=== PATIENT | female | born 1995 ===

== ENCOUNTER 2023-05-11 19:06 | Outpatient (BNV) | payer OTHER, SELFPAY | END 2023-05-12 10:48 | PROVIDERS: Admitting Provider Psychiatry & Neurology Psychiatry; Visit Provider Internal Medicine Cardiovascular Disease | DX: Z51.81 Encounter for therapeutic drug level monitoring (principal) | CPT/HCPCS: 93010 ==

== ENCOUNTER 2023-05-11 19:06 | Inpatient (IN) | payer OTHER, SELFPAY ==
--- OUTSIDE RECORDS SUMMARY | 2023-05-11 19:10 | XMS_ITS | Continuity of Care Document ---
Author Name [facility] Address [address] [place] [id number] Organization [facility] Address [address] [place] [address] Care Team Providers Care Vocational Psychologist Name Role Phone No, Pcp Primary Care Physician Tin Lopez Physician Allergies, Adverse Reactions, Alerts Allergen Type Severity Reaction Last Updated Verified Status azithromycin Allergy Unknown May 11, 2023 Y Acti ve ibuprofen Allergy Rash May 11, 2023 Y Active Iodinated Contrast Media Allergy Unknown May 11, 2023 Y Active NSAIDS (Non-Steroidal Anti-Inflamma Allergy Unknown May 11, 2023 Y Active Sulfa (Sulfonamide Antibiotics) Allergy Unknown May 11, 2023 Y Active sulfamethoxazole Allergy Facial Swelling May 11, 2023 Y Active trimethoprim Allergy Facial Swelling May 11, 2023 Y Active Medications Active Medications Medication Dose Units Route Sig Start Date Status Melatonin 3 MG Oral Bedtime May 10, 2023 Active Cannabidiol [Epidiolex] 4.7 MG Oral 2 times a day Au 2022 Active Acetaminophen 650 MG Oral as directed May 10, 2023 Active Lamotrigine 200 MG Oral daily May 10, 2023 Activ e Methylphenidate Hcl [Concerta] 36 MG Oral daily May 10, 2023 Active Sirolimus 2 MG Oral daily May 10, 2023 Active Midazolam [Nayzilam] 5 MG Nostril-Both as directed PRN For Seizure Activity May 10, 2023 Active Problem List Active Problems Medical Problem Onset Date Status Paranoia Active Procedures No known history of procedures. Relevant Diagnostic Tests and/or Laboratory Data Laboratory Results Test Date/Time Result Interp. Ref. Range Result Co mment White Blood Count May 10, 2023 7:45pm 6.87 K/uL 3.5-11.0 Red Blood Count May 10, 2023 7:45pm 4.33 M/uL 3.60-4.80 Hemoglobin May 10, 2023 7:45pm 10.2 g/dL Low 12.0-16.0 Hematocrit May 10, 2023 7:45pm 33.2 % Low 36.0-48.0 Mean Corpuscular Volume May 10, 2023 7:45pm 76.7 fL Low 79.0-98.0 Mean Corpuscular Hemoglobin May 10, 2023 7:45pm 23.6 pg Low 25.4-34.6 Mean Corpuscular Hemoglobin Concent May 10, 2023 7:45pm 30.7 g/dL 30.0-36.0 Red Cell Distribution Width May 10, 2023 7:45pm 15.0 % High 11.5-14.5 Platelet Count May 10, 2023 7:45pm 361 K/uL 150-400 Neutrophils (%) (Auto) May 10, 2023 7:45pm 68.3 % High 35.0-66.0 Immature Granulocyte % (Auto) May 10, 2023 7:45pm 0.1 % 0.0-0.6 Lymphocytes (%) (Auto) May 10, 2023 7:45pm 24.5 % Low 25.0-45.0 Monocytes (%) (Auto) May 10, 2023 7:45pm 3.6 % 0.0-13.0 Eosinophils (%) (Auto) May 10, 2023 7:45pm 2.9 % 0.0-8.0 Basophils (%) (Auto) May 10, 2023 7:45pm 0.6 % 0.0-1.0 Absolute Neutrophils (auto) May 10, 2023 7:45pm 4.69 K/uL 1.5-7.5 Caution: Interpretation of ANC results without inclusion of the WBC differential results may lead to erroneous diagnosis; for example, missing myeloproliferative or lymphoproliferative disorders. Absolute Immature Granulocyte (auto May 10, 2023 7:45pm 0.01 K/uL 0.00-0.09 Lymphocytes # (Auto) May 10, 2023 7:45pm 1.68 K/uL 0.8-4.8 Monocytes # (Auto) May 10, 2023 7:45pm 0.25 K/uL Low 0.4-1.3 Eosinophils # (Auto) May 10, 2023 7:45pm 0.20 K/uL 0.0-0.8 Basophils # (Auto) May 10, 2023 7:45pm 0.04 K/uL 0.0-0.6 Urine Color May 11, 2023 11:29am Yellow Yellow Urine Appearance May 11, 2023 11:29am Slightly cloudy Clear Urine Specific [place] May 11, 2023 11:29am 1.020 1.001-1.035 Urine Glucose (UA) May 11, 2023 11:29am Negative Negative Urine Bilirubin May 11, 2023 11:29am Negative Negative Urine Ketones May 11, 2023 11:29am Negative Negative Urine Hemoglobin May 11, 2023 11:29am Trace-intac t High Negative Urine pH May 11, 2023 11:29am 7.5 5.0-8.0 Urine Protein May 11, 2023 11:29am Trace (low) mg/dl Negative Urine Urobilinogen May 11, 2023 11:29am 0.2 mg/dl 0.2-1.0 Urine Nitrite May 11, 2023 11:29am Negative Negative Urine Leukocyte Esterase May 11, 2023 11:29am 2+ High Negative Urine RBC May 11, 2023 11:29am 2-5 Urine WBC May 11, 2023 11:29am 5-9 Urine Squamous Epithelial Cells May 11, 2023 11:29am 2+ Urine Bacteria May 11, 2023 11:29am 1+ Urine Test May 10, 2023 10:10pm Negative Negative Sodium Level May 10, 2023 7:45pm 141 mmol/L 136-145 Potassium Level May 10, 2023 7:45pm 4.3 mmol/L 3.5-5.1 Chloride Level May 10, 2023 7:45pm 106 mmol/L 98-107 Carbon Dioxide Level May 10, 2023 7:45pm 22.9 mmol/L 22-29 Anion Gap May 10, 2023 7:45pm 16 mmol/L 10-20 Blood Urea Nitrogen May 10, 2023 7:45pm 16 mg/dL 6-20 Creatinine May 10, 2023 7:45pm 1.23 mg/dl High 0.50-0.90 Estimat Glomerular Filtration Rate May 10, 2023 7:45pm 62 GFR Value: mL/mi n/1.73 square meters Calculation: CKD-EPI Creatinine Equation (2020) Chronic Kidney Disease is defined as either of the following present for >= 3 months: - GFR less than 60 mL/min/1.73 square meters. - Microalbumin:Ur. Creatinine Ratio >= 30 mg/g or other markers of kidney damage Kidney failure is less than 15 mL/min/1.73 square meters This test is not performed in patients under the age of 18. Glucose Level May 10, 2023 7:45pm 98 mg/dL 70-106 Calcium Level May 10, 2023 7:45pm 9.3 mg/dL 8.6-10.3 Total Bilirubin May 11, 2023 9:51am < 0.2 mg/dL Low 0.2-1.2 Direct Bilirubin May 11, 2023 9:51am < 0.20 mg/dL 0.0-0.3 Aspartate Amino Transf (AST/SGOT) May 11, 2023 9:51am 23 U/L 5-32 Alanine Aminotransferase (ALT/SGPT) May 11, 2023 9:51am 17 U/L 5-33 Total Protein May 11, 2023 9:51am 7.6 g/dL 6.4-8.3 Albumin May 11, 2023 9:51am 4.2 g/dL 3.5-5.2 Globulin May 11, 2023 9:51am 3.4 gm/dl 2.0-3.5 Albumin/Globulin Ratio May 11, 2023 9:51am 1.2 % 1.1-2.5 Alkaline Phosphatase May 11, 2023 9:51am 88 U/L 35-104 Coronavirus 2019 (ABBY) May 11, 2023 11:27am Negative Negative ID NOW COVID-19 assay is a rapid molecular in vitro diagnostic test utilizing an isothermal nucleic acid amplification technology intended for the qualitative detection of nucleic acid from SARS-CoV-2 viral RNA in direct nasal, nasopharyngeal or throat swabs eluted in viral transport media from individuals who are suspected of COVID-19. Results are for the identification of SARS-CoV-2 RNA which is generally detectable in respiratory samples during the acute phase of infection. Positive results are indicative of the presence of SARS-CoV-2 RNA; clinical correlation with patient history and other diagnostic information is necessary to determine patient infection status. Positive results do not rule out bacterial infection or co-infection with other viruses. Negative results do not preclude SARS-CoV-2 infection and should not be used as the sole basis for patient management decisions. Negative results must be combined with clinical observations, patient history, and epidemiological information. The ID NOW COVID-19 test is only for use under the Food and Drug Administration's Emergency Use Authorization. Urine Opiates Screen May 10, 2023 10:10pm Negative Negative Urine Barbiturates Screen May 10, 2023 10:10pm Negative Negative Urine Phencyclidine Screen May 10, 2023 10:10pm Positive Negative Urine Amphetamines Screen May 10, 2023 10:10pm Negative Negative Urine Benzodiazepines Screen May 10, 2023 10:10pm Negative Negative Urine Cocaine Screen May 10, 2023 10:10pm Negative Negative Urine Marijuana (THC) Screen May 10, 2023 10:10pm Positive Negative Urine Methadone Screen May 10, 2023 10:10pm Negative Negative Urine Propoxyphene Screen May 10, 2023 10:10pm Negative Negative Urine Oxycodone Screen May 10, 2023 10:10pm Negative Negative Ethyl Alcohol Level May 10, 2023 7:45pm < 10 mg/dL This result is b elow the linearity of the instrument and should be considered indistinguishable from zero. REFERENCE RANGE: NONE DETECTED No reference range is available for determination of clinical intoxication. Urine Fentanyl Presumptive Screen May 10, 2023 10:10pm Negative Negative Urine Drug Screen Comment May 10, 2023 10:10pm See Comments Negative Testing Thresholds a re as follows: Ampthetamines 500 ng/mL Benzodiazepines 100 ng/mL Propoxyphene 300 ng/mL Barbiturates 200 ng/mL Methadone 300 ng/mL PCP/metabolites 25 ng/mL Cocaine/metabolites 300 ng/mL Cannabinoids 50 ng/ml Opiate Class 300 ng/mL Oxycodone Class 100 ng/mL Fentanyl 5 ng/ml A Negative test result indicates that this analyte is either not present, OR is present at levels below the cutoff threshold of this test. A Positive result from the assay indicates only the presence of the analyte and does not necessarily correlate with the extent of physiological and psychological effects. Please Note: This is a screening method only. This specimen will not be automatically sent out to a reference laboratory for any confirmation testing. If the provider needs confirmation testing, Please call the laboratory within 24 hours to request further testing. Advance Directives Advance Directive Response Recorded Date/ Time Any Other Advanced Directives No Au 2022 7:11pm Health Care Proxy No May 10, 2023 7:11pm Chief Complaint and Reason for Visit Encounter Admit Date Chief Complaint Reason for V joanna Departed Emergency May 10, 2023 7:07pm [facility] Hospital Discharge Instructions No known hospital discharge instructions. Hospital Discharge Medications Medication Dose Units Route Sig Qty Days Order Date Status Instructions Melatonin 3 MG Oral Bedtime May 10, 2023 Active Cannabidiol 4.7 MG Oral 2 times a day May 10, 2023 Active Acetaminophen 650 MG Oral as directed May 10, 2023 Active Lamotrigine 200 MG Oral daily 2022 Active Methylphenidate Hcl 36 MG Oral daily May 10, 2023 Active Sirolimus 2 MG Oral daily May 10, 2023 Active Midazolam 5 MG Nostril- Both as directed PRN For Seizure Activity May 10, 2023 Active Encounters Encounter Facility Location Admit/Visit Date Discharge/Departure Date Attending Provider Departed Emergency [facility] Emergency Department May 10, 2023 7:07pm May 11, 2023 5:47pm Functional Status No known functional status. Immunizations No known immunizations. Plan of Care No Known Plan of Care Information Social History No known social history. Vital Signs Vital Reading Result Reference Range Collection Date/Time Height 5 ft 3 in May 11, 2023 7:38am Weight 130 lb May 11, 2023 7:38am Temperature 97.3 F 96.8 F-100.4 F May 11 5:00pm Pulse 75 BPM 50-100 May 11, 2023 5:00pm Respiration 18 RPM 12-20 May 11, 2023 5:00pm Pulse Oximetry 99 % 92-100 May 11 5:00pm Blood Pressure Systolic 113 90-139 2022 5:00pm Blood Pressure Diastolic 73 60-89 May [facility] 2022 5:00pm Body Mass Index 23.0 May 11 7:38am
--- OUTSIDE RECORDS SUMMARY | 2023-05-11 19:10 | XMS_ITS ---
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 50904 00 Problem Autism F84.0 Active 457336443 Problem Nonintractable epilepsy without status epilepticus, unspecified epilepsy type G40.909 Active 89704140 ALLERGIES Substance Reaction Event Type Date Status Zithromax Unknown Drug Allergy Nov, Active Baclofen Unknown Drug Allergy Nov, Active ENCOUNTERS Encounter Location Date Diagnosis [facility], [address] [address] May, [facility], [address] [address] Apr, [facility], [address] [address] January, [facility], [address] [address] Jan, [facility], [address] [address] 04 Jan, 2023 Tuberous sclerosis Q85.1 [facility], [address] [address] Dec, Tuberous sclerosis Q85.1 [facility], [address] [address] 28 Nov, 2022 [facility], [address] [address] 08 Nov, 2022 Tuberous sclerosis Q85.1 [facility], [address] [address] 06 Nov, 2022 [facility], [address] [address] Nov, [facility], [address] [address] Nov, [facility], [address] [address] Nov, Tuberous sclerosis Q85.1 ; Autism F84.0 ; Nonintractable epilepsy without status epilepticus, unspecified epilepsy type G40.909 ; Attention deficit hyperactivity disorder (ADHD), combined type F90.2 and Mood and affect disturbance R45.86 [facility], [address] [address] 17 Oct, 2022 [facility], [address] [address] 14 Oct, 2022 Tuberous sclerosis Q85.1 [facility], [address] [address] 14 Oct, 2022 [facility], [address] [address] 09 Oct, 2022 [facility], [address] [address] 13 Sep, 2022 [facility], [address] [address] 16 Aug, 2022 [facility], [address] [address] 08 Aug, 2022 Tuberous sclerosis Q85.1 [facility], [address] [address] 05 Jul, 2022 [facility], [address] [address] 05 Jul, 2022 Tuberous sclerosis Q85.1 [facility], [address] [address] 21 Jun, 2022 Tuberous sclerosis Q85.1 [facility], [address] [address] 12 Jun, 2022 Tuberous sclerosis Q85.1 [facility], [address] [address] 29 May, 2022 Tuberous sclerosis Q85.1 [facility], [address] [address] 11 May, 2022 [facility], [address] [address] 15 Apr, 2022 [facility], [address] [address] 11 Apr, 2022 [facility], [address] [address] 08 Mar, 2022 [facility], [address] [address] Mar, [facility], [address] [address] January, [facility], [address] [address] 17 Jan, 2022 Tuberous sclerosis Q85.1 ; Autism F84.0 ; Nonintractable epilepsy without status epilepticus, unspecified epilepsy type G40.909 ; Attention deficit hyperactivity disorder (ADHD), combined type F90.2 and Mood and affect disturbance R45.86 [facility], [address] [address] 04 Jan, 2022 [facility], [address] [address] January, [facility], [address] [address] 04 Jan, 2022 [facility], [address] [address] Dec, [facility] [address] 11 Nov, 2021 [facility], [address] [address] 08 Nov, 2021 Tuberous sclerosis Q85.1 ; Autism F84.0 ; Nonintractable epilepsy without status epilepticus, unspecified epilepsy type G40.909 ; Attention deficit hyperactivity disorder (ADHD), combined type F90.2 and Mood and affect disturbance R45.86 [facility], [address] [address] 07 Nov, 2021 [facility], [address] [address] 05 Nov, 2021 [facility], [address] [address] Oct, [facility], [address] [address] Sep, [facility], [address] [address] Sep, [facility], [address] [address] Aug, Tuberous sclerosis Q85.1 ; Autism F84.0 ; Nonintractable epilepsy without status epilepticus, unspecified epilepsy type G40.909 ; Attention deficit hyperactivity disorder (ADHD), combined type F90.2 and Mood and affect disturbance R45.86 [facility], [address] [address] Aug, [facility], [address] [address] Aug, [facility], [address] [address] Jul, [facility], [address] [address] Jul, [facility], [address] [address] Jun, [facility], [address] [address] May, Tuberous sclerosis Q85.1 [facility], [address] [address] May, [facility], [address] [address] May, Tuberous sclerosis Q85.1 [facility], [address] [address] May, [facility], [address] [address] Apr, [facility], [address] [address] Apr, Tuberous sclerosis Q85.1 ; Autism F84.0 ; Nonintractable epilepsy without status epilepticus, unspecified epilepsy type G40.909 ; Attention deficit hyperactivity disorder (ADHD), combined type F90.2 and Mood and affect disturbance R45.86 [facility], [address] [address] Apr, [facility], [address] [address] Mar, [facility], [address] [address] January, [facility], [address] [address] January, Tuberous sclerosis Q85.1 [facility], [address] [address] January, Tuberous sclerosis Q85.1 [facility], [address] [address] January, [facility], [address] [address] January, [facility], [address] [address] January, [facility], [address] [address] Jan, [facility], [address] [address] Jan, Tuberous sclerosis Q85.1 ; Autism F84.0 ; Nonintractable epilepsy without status epilepticus, unspecified epilepsy type G40.909 ; Attention deficit hyperactivity disorder (ADHD), combined type F90.2 and Mood and affect disturbance R45.86 [facility], [address] [address] 05 Jan, 2021 [facility], [address] [address] 09 Dec, 2020 [facility], [address] [address] 08 Dec, 2020 [facility], [address] [address] 23 Nov, 2020 Tuberous sclerosis Q85.1 ; Autism F84.0 ; Nonintractable epilepsy without status epilepticus, unspecified epilepsy type G40.909 ; Attention deficit hyperactivity disorder (ADHD), combined type F90.2 and Mood and affect disturbance R45.[address] [address] 08 Nov, 2020 [facility] [address] [address] Nov, [facility], [address] [address] Oct, [facility] [address] [address] Sep, [facility], [address] [address] Sep, [facility] [address] Sep, [facility] [address] Jul, [facility] [address] 06 Jul, 2020 Tuberous sclerosis Q85.1 ; Autism F84.0 ; Nonintractable epilepsy without status epilepticus, unspecified epilepsy type G40.909 ; Attention deficit hyperactivity disorder (ADHD), combined type F90.2 and Mood and affect disturbance R45.86 [facility] [address] 30 Jun, 2020 [facility], [address] [address] Jun, [facility], [address] [address] May, [facility] [address] May, [facility] [address] Apr, [facility] [address] [address] Apr, [facility] [address] [address] Mar, [facility] [address] [address] 05 Mar, 2020 Tuberous sclerosis Q85.1 ; Autism F84.0 ; Nonintractable epilepsy without status epilepticus, unspecified epilepsy type G40.909 ; Attention deficit hyperactivity disorder (ADHD), combined type F90.2 and Mood and affect disturbance R45.[address] [address] Mar, [facility] [address] [address] Mar, [facility] [address] [address] January, Tuberous sclerosis Q85.1 ; Autism F84.0 ; Nonintractable epilepsy without status epilepticus, unspecified epilepsy type G40.909 ; Attention deficit hyperactivity disorder (ADHD), combined type F90.2 and Mood and affect disturbance R45.[address] [address] January, Tuberous sclerosis Q85.1 ; Autism F84.0 ; Nonintractable epilepsy without status epilepticus, unspecified epilepsy type G40.909 ; Attention deficit hyperactivity disorder (ADHD), combined type F90.2 and Mood and affect disturbance R45.[address] [address] 08 Feb, 2020 Tuberous sclerosis Q85.1 ; Autism F84.0 ; Nonintractable epilepsy without status epilepticus, unspecified epilepsy type G40.909 ; Attention deficit hyperactivity disorder (ADHD), combined type F90.2 and Mood and affect disturbance R45.[address] [address] January, [facility] [address] [address] January, Tuberous sclerosis Q85.1 ; Autism F84.0 ; Nonintractable epilepsy without status epilepticus, unspecified epilepsy type G40.909 ; Attention deficit hyperactivity disorder (ADHD), combined type F90.2 and Mood and affect disturbance R45.[address] [address] Jan, Tuberous sclerosis Q85.1 ; Autism F84.0 ; Nonintractable epilepsy without status epilepticus, unspecified epilepsy type G40.909 ; Attention deficit hyperactivity disorder (ADHD), combined type F90.2 and Mood and affect disturbance R45.[address] [address] Jan, Tuberous sclerosis Q85.1 ; Autism F84.0 ; Nonintractable epilepsy without status epilepticus, unspecified epilepsy type G40.909 ; Attention deficit hyperactivity disorder (ADHD), combined type F90.2 and Mood and affect disturbance R45.[address] [address] Jan, [facility] [address] [address] Dec, [address] [address] Dec, [facility] [address] [address] Dec, Tuberous sclerosis Q85.1 ; Autism F84.0 ; Nonintractable epilepsy without status epilepticus, unspecified epilepsy type G40.909 ; Attention deficit hyperactivity disorder (ADHD), combined type F90.2 and Mood and affect disturbance R45.[address] [address] Dec, Tuberous sclerosis Q85.1 ; Autism F84.0 ; Nonintractable epilepsy without status epilepticus, unspecified epilepsy type G40.909 ; Attention deficit hyperactivity disorder (ADHD), combined type F90.2 and Mood and affect disturbance R45.86 [address] [place] [address] Nov, Tuberous sclerosis Q85.1 ; Autism F84.0 ; Nonintractable epilepsy without status epilepticus, unspecified epilepsy type G40.909 ; Attention deficit hyperactivity disorder (ADHD), combined type F90.2 and Mood and affect disturbance R45.[address] [address] Nov, Tuberous sclerosis Q85.1 ; Autism F84.0 ; Nonintractable epilepsy without status epilepticus, unspecified epilepsy type G40.909 ; Attention deficit hyperactivity disorder (ADHD), combined type F90.2 and Mood and affect disturbance R45.86 IMMUNIZATIONS No Known Immunizations SOCIAL HISTORY Qualifiers Date Never Smoker REASON FOR REFERRAL FUNCTIONAL STATUS PLAN OF CARE Activity Details VITAL SIGNS Temperature 98.9 degrees Fahrenheit Temperature 98.1 degrees Fahrenheit Temperature 97.8 degrees Fahrenheit Heart Rate 88 /min 2022-11-03 Heart Rate 80 /min 2020-01-25 Heart Rate 87 /min 2020-01-08 Heart Rate 99 /min 2019-12-11 Heart Rate 94 /min 2019-11-27 Heart Rate 88 /min 2019-11-13 Weight 131 lbs 2022-11-03 Weight 127 lbs 2022-02-16 Weight 127 lbs 2021-11-10 Weight 133.3 lbs 2021-09-01 Weight 130 lbs 2021-01-20 Weight 130 lbs 2020-07-08 Weight 130 lbs 2020-03-07 Weight 130 lbs 2020-02-22 Weight 130 lbs 2020-02-15 Weight 130 lbs 2020-02-08 Weight 127 lbs 2020-02-01 Weight 127.2 lbs 2020-01-25 Weight 130 lbs 2020-01-08 Weight 140 lbs 2019-12-11 Weight 135.8 lbs 2019-11-27 Weight 136.0 lbs 2019-11-13 BMI 23.20 kg/m2 2022-11-03 BMI 22.49 kg/m2 2022-02-16 BMI 22.49 kg/m2 2021-11-10 BMI 23.61 kg/m2 2021-09-01 BMI 23.03 kg/m2 2021-01-20 BMI 23.03 kg/m2 2020-07-08 BMI 23.03 kg/m2 2020-03-07 BMI 23.03 kg/m2 2020-02-22 BMI 23.03 kg/m2 2020-02-15 BMI 23.03 kg/m2 2020-02-08 BMI 22.49 kg/m2 2020-02-01 BMI 22.53 kg/m2 2020-01-25 BMI 23.03 kg/m2 2020-01-08 BMI 24.80 kg/m2 2019-12-11 BMI 24.05 kg/m2 2019-11-27 BMI 63 kg/m2 2019-11-13 Height 63 in 2022-11-03 Height 63 in 2022-02-16 Height 63 in 2021-11-10 Height 63 in 2021-09-01 Height 63 in 2021-01-20 Height 63 in 2020-07-08 Height 63 in 2020-03-07 Height 63 in 2020-02-22 Height 63 in 2020-02-15 Height 63 in 2020-02-08 Height 63 in 2020-02-01 Height 63 in 2020-01-25 Height 63 in 2020-01-08 Height 63 in 2019-12-11 Height 63 in 2019-11-27 Respiratory Rate 17 /min 2020-01-25 Respiratory Rate 17 /min 2020-01-08 Oximetry 98 % 2020-01-25 Oximetry 98 % 2020-01-08 Blood pressure systolic 114 mm Hg Blood pressure diastolic 76 mm Hg 2022-11 MEDICATIONS Medication Instructions Dosage Frequency Start Date End Date Duration Status Abilify 5 MG Orally Twice daily 1 tablet 30 day(s) Active Zestril 10 MG Orally Once a day 1.5 tablet 24h Active Lamotrigine 25 mg PO in AM 2 tabs in AM WITH 200mg Active Vitamin D 50 MCG (1999) Orally Once a day 1 tablet 24h Active Concerta 36 mg Orally Once a day 1 tablet in the morning 24h Apr, May, 30 days Active traZODone HCl 50 MG Orally Once a day 1 tablet at bedtime as needed 24h 30 day(s) Active Rapamune 1 MG Orally BID as directed 12h Active Trazodone HCl 50 MG Orally Once a day 1 tablet at bedtime 24h 30 day(s) Active LaMICtal 200 MG Orally once daily at bedtime 1.5 tabs (300mg) 30 day(s) Active PROzac 40 MG Orally Once a day 2 capsules 24h 30 days Active lamoTRIgine 200 MG Orally Once a day in AM 1 tablet 30 days Active ARIPiprazole 2 mg Take 1 tablet by mouth every day at bedtime with 5mg 30 Active Acetaminophen 650 MG as directed Active FLUoxetine HCl 10 MG Orally Once a day 1 capsule 24h 30 day(s) Active Epidiolex 100 mg/ml PO BID 4.7ml 12h Active PROCEDURES No Known procedures RESULTS No Results REASON FOR VISIT Message, refill, no show?, In office 3 mo f/u, trazodone , med refill , New Refill Request, New Refill Request, refill, med list, n/s policy- at risk of breaking!, In office follow up, Prescription Q, out of concerta, prior Rx didnt send, New Refill Request, Concerta 36 MG Tablet Extended Release, Refill , email message, CX per caregiver, Rx refill, Med Refill, trazodone 50mg, refill, Pt has stomach bug *IN OFFICE - 3 mo f/u, Trazodone HCl 50 MG Tablet, Concerta 36 mg tablet extended release, rx needed stat, Refill Request, Needs info faxed, Concerta 54 mg , f/u, - doxy 3 mo f/u,Call back from Office, Concerta 54 MG Tablet Extended Release, Concerta 54 MG Tablet , refill , 3 mos f/u CF, - doxy 3 mo f/u, Needs call back from office, rx issue , Concerta 54 MG Tablet , refill , Needs call back from office, doxy.me visit f/u MRI, Refill , Concerta Refill, refill, refill, refill, refill, Paperwork & MEDS, Refill, Concerta, Prozac & Abilify, Needs call back from office, doxy.me visit, f/u neuropsych eval, Refills, refill, Rx clarifications, Needs call back from office, refill, Increase in Abilify, f/u, doxy.me visit follow up, refill, therapist suggestion , Concerta, doxy.nm visit follow up, PA for Abilify, refill, Refills, schedule question, *IN OFFICE VISIT - follow up, Change in Status, RX Refill request for Concerta 54 MG Tablet Extended Release, urgent rx refill request, *IN OFFICE VISIT - follow up, refill, New Therapist?, Needs info faxed, Concerta refill, concerta, Concerta 54 mg, , ask for Frances [email or web address] tele-visit/ verbal consent was given by the patient - follow up Therapy Ok per Dr. Harmon, Follow up, , ask for Frances [email or web address] tele-visit/ verbal consent was given by the patient - follow up Therapy, Needs call back from office, F/U, [email or web address] , Therapy , Concerta 54 mg, , ask for Frances [email or web address] tele- visit/ verbal consent was given by the patient - follow up, , ask for Frances [email or web address] tele-visit/ verbal consent was given by the patient - follow up, Telephone Visit, [email or web address] / verbal consent was given by the patient / Therapy, Alessioa, Telephone-Precepting visit, [email or web address] visit, 2 week followup, 2 Weeks for therapy 1 hour, TBI, Seizures Insurance Providers Health Insurance Type Health Plan Insurance Address Health Plan Insurance Phone Health Plan Insurance Name Health Plan Coverage Dates Member ID Patient Relationship to Subscriber Patient Address Patient Phone Patient Name Patient Date of Subscriber ID Subscriber Name Subscriber Date of Group No [place] [address] [place] [address] [place] self Lynsey Leonard [id number]
--- OUTSIDE RECORDS SUMMARY | 2023-05-11 19:10 | XMS_ITS | Continuity of Care Document ---
Author Name [facility] Address [address] [place] [id number] Organization [facility] Address [address] [place] [address] Allergies, Adverse Reactions, Alerts No allergy information available. Medications No medication information available. Problem List No problem information available. Procedures No known history of procedures. Relevant Diagnostic Tests and/or Laboratory Data No known relevant diagnostic tests, laboratory data, and/or discharge summary. Hospital Discharge Instructions No known hospital discharge instructions. Functional Status No known functional status. Immunizations No known immunizations. Plan of Care No Known Plan of Care Information Social History No known social history. Vital Signs No known vital signs results.
--- OUTSIDE RECORDS SUMMARY | 2023-05-11 19:10 | XMS_ITS | Continuity of Care Document ---
Author Name [facility] Address [address] [place] [id number] Organization [facility] Address [address] [place] [address] Allergies, Adverse Reactions, Alerts No allergy information [...]
--- NOTE | 2023-05-11 19:23 | PC.NURSE ---
Pt was arrived on the unit at 1918 to the unit and signed a CV. VSS.
[2023-05-11 19:25] VITALS: BP 118/71; PULSE 70; RESP 18; TEMP 36.8; O2SAT 100
--- NOTE | 2023-05-12 | ECG_ITS ---
Test Reason : QTC CHECK Blood Pressure : / mmHG Vent. Rate : 083 BPM Atrial Rate : 083 BPM P-R Int : 172 ms QRS Dur : 082 ms QT Int : 390 ms P-R-T Axes : 060 065 067 degrees QTc Int : 458 ms Normal sinus rhythm Normal ECG No previous ECGs available Referred By: Titi Martell Electronically Signed By:Bharathi Diallo
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
[2023-05-12 09:06] LABS: Glucose, Whole Blood 76 mg/dL (60-115)
[2023-05-12] MEDS: lamoTRIgine 100 MG TABLET 200 MG PO (09:25)
[2023-05-12] MEDS: LORazepam 2 MG/ML VIAL 1 MG IM (09:26)
[2023-05-12 10:00] VITALS: BP 114/72; PULSE 88; RESP 16; TEMP 36.9; O2SAT 96
[2023-05-12 10:04] LABS: Alanine Aminotransferase 14 U/L (0-31); Albumin Level 4.1 g/dL (3.5-5.0); Alkaline Phosphatase 82 U/L (39-117); Anion Gap 24 (12-20); Aspartate Amino Transferase 14 U/L (5-31); Bilirubin Total 0.2 mg/dL (0.0-1.0); Blood Urea Nitrogen 12 mg/dL (9-16); Calcium 9.6 mg/dL (8.4-10.2); Carbon Dioxide 12 mmol/L (22-29); Chloride 110 mmol/L (96-108); Cholesterol 253 mg/dL; Estimated Glomerular Filt Rate > 60; Glucose Fasting 80 mg/dL (60-99); HDL Cholesterol 43 mg/dL; LDL Cholesterol Calculated 174 mg/dl; Potassium 4.2 mmol/L (3.3-5.1); Sodium 142 mmol/L (135-145); Total Protein 7.7 g/dL (6.5-8.0); Triglycerides 182 mg/dL
[2023-05-12] MEDS: Glucose Gel 15 GM GEL..GRAM. PO (10:17)
--- NOTE | 2023-05-12 10:30 | HO.PM.IMCN ---
History of Present Illness Data of Consult Service Date: 05/12/23 Primary Care Provider: None Physician HPI 27 year old female with admitted to Psych for increased paranoia, agitation and symptoms of angel. She has history of tuberous sclerosis associated seizure desorder. Pt has reportedly been yelling repeating ?they are out to get me and kill my family. I hate my life?; she felt that ?they? were going to steal her soul?. Pt had been drinking urine and chemicals, as well as making suicidal statements that she was going to kill herself. Pt was discharged from [facility] 05/02/23 after an overdose on celexa; this reportedly led to an increase in seizure/renal failure, which resulted in her providers discontinuing the medications. She has been increasingly manic, and ingested the fluid inside of a lava lamp, as well as her own urine. per alethea. This morning whil walking an RN, she warned she was about to have a seizure and was helpped to the ground and had a seizure lasting several minutes, associated with urinary incontinence, blood sugar was 76 and was given glucogel, she became alert shortly thereafter and was responding apriopriate and stated that she get seizures often. She takes Lamictal and Nasal Midazolam for seizure and had not yet taking meds today. Labs after seizure show bicab of 12 and anion gap of 24 and normal blood sugar Review of Systems Review of Systems: Ohter than seizure, no headache, no confusion, no dizziness, no shortness of breath, no chest pain and all other system reviewed and negative. [facility] Social History Household Members: Other Housing: Other Housing Other:: long-term, [facility] [place], [place] Do you presently have visiting nurse or other home services: No Unable to assess alcohol history related to: Unknown Patient Tobacco Use Status: Tobacco use Unknown Use of substances other than those prescribed or required for medical reasons: Yes Substance Use Type: Marijuana and Other Substance Use Type Other:: PCP Last Used Substance: Unknown Currently Displaying Signs/Symptoms of Drug Intoxication Withdrawal: No Any prior treatment program specific to substance use: No Spiritual Healthcare Practices: none identified Restorationism Healthcare Practices: none identified Cultural Healthcare Practices: none identified Advance Directives: No Advance Directives Information Provided: No Do you have thoughts of harming others: None Do you have a plan to hurt others: No Plan Recently lost weight without trying: No Nutrition Risks: No Nutritional Risk Patient : No : No Poor oral hygiene: No service: No Sexual orientation: Straight/Heterosexual Meds Allergies Allergy/AdvReac Type Severity Reaction Status Date / Time azithromycin Allergy Rash Verified 05/11/23 19:14 ibuprofen Allergy Rash Verified 05/11/23 19:14 Iodinated Contrast Media Allergy Rash Verified 05/11/23 19:14 NSAIDS (Non-Steroidal Allergy Rash Verified 05/11/23 19:14 Anti-Inflamma Sulfa (Sulfonamide Allergy Rash Verified 05/11/23 19:14 Antibiotics) Active Medications: Current Medications Acetaminophen (Acetaminophen 325 Mg Tablet) 650 mg PO Q6H PRN PRN Reason: Headache/Pain Mild Scale (1-3) Al Hydroxide/Mg Hydroxide (Magnesium Hydrox/Alum Hydrox 30 Ml Oral.Susp) 30 ml PO Q6H PRN PRN Reason: Heartburn/Nausea Hydroxyzine HCl (Hydroxyzine Hcl 25 Mg Tablet) 25 mg PO Q6H PRN PRN Reason: Anxiety Lamotrigine (Lamotrigine 100 Mg Tablet) 200 mg PO DAILY [facility] Last Admin: 05/12/23 09:25 Dose: 200 mg Magnesium Hydroxide (Milk Of Magnesia 30 Ml Oral.Susp) 30 ml PO DAILY PRN PRN Reason: Constipation Melatonin (Melatonin 3 Mg Tablet) 3 mg PO BEDTIME [facility] Non-Formulary Medication (Sirolimus) 2 mg PO DAILY [facility] Non-Formulary Medication (Cannabidiol [Epidiolex]) 4.7 mg PO BID [facility] Trazodone HCl (Trazodone Hcl 50 Mg Tablet) 50 mg PO BEDTIME MRX1 PRN PRN Reason: Insomnia Home Medications Medication Instructions Recorded Confirmed Last Taken Type acetaminophen 325 mg tablet 650 mg PO Q4H PRN Pain, Moderate 05/11/23 05/11/23 05/11/23 11:02 History cannabidiol 100 mg/mL oral 4.7 mg PO BID 05/11/23 05/11/23 Unknown History solution (Epidiolex) lamotrigine 200 mg tablet 200 mg PO DAILY 05/11/23 05/11/23 05/11/23 09:22 History melatonin 3 mg tablet 3 mg PO BEDTIME 05/11/23 05/11/23 Unknown History methylphenidate HCl 36 mg 36 mg PO DAILY 08/09/23 08/09/23 Unknown History tablet,extended release 24 hr (Concerta) midazolam 5 mg/spray (0.1 mL) 5 mg intranasal DIRECTED PRN 05/11/23 05/11/23 Unknown History nasal spray (Nayzilam) seizure activity sirolimus 2 mg tablet 2 mg PO DAILY 05/11/23 05/11/23 Unknown History Physical Exam Vital Signs and Narrative: Vital Signs: Last Vital Signs Temp 98.2 F 05/11/23 19:25 Pulse 70 05/11/23 19:25 Resp 18 05/11/23 19:25 BP 118/71 05/11/23 19:25 Pulse Ox 100 05/11/23 19:25 O2 Del Method Room Air 05/11/23 19:25 Const: Other: Constitutional: Alert, in no distress, overweight. Mental Status: Oriented to person, place and time. Eyes: Pupils are equal, round and reactive to light. Ear, Nose and Throat: Oropharynx clear, mucous membranes moist. Ears and nose without eformities. Trachea midline. Respiratory: Clear to auscultation. No wheezing, rales or rhonchi. Cardiovascular: S1 S2 regular. No murmurs, rubs or gallops. Gastrointestinal: Abdomen soft, non-tender, non-distended. Normal bowel sounds.? Neurologic: Cranial nerves II-XII grossly intact. No focal neurological deficits. Moves all extremities spontaneously.? Skin: No rashes or lesions.? Musculoskeletal: No cyanosis or clubbing. Psychiatric: Normal mood and affect? Results Labs 05/12/23 09:10 Labs: Laboratory Results - last 24 hr 05/12/23 05/12/23 09:02 09:10 Anion Gap 24 H Estim Creat Clear Calc TNP Estimated GFR > 60 POC Glucose 76 Fasting Glucose 80 Calcium 9.6 Total Bilirubin 0.2 AST 14 ALT 14 Alkaline Phosphatase 82 Total Protein 7.7 Albumin 4.1 Triglycerides 182 Cholesterol 253 LDL Cholesterol, Calc 174 HDL Cholesterol 43 Assessment and Plan (1) Tuberous sclerosis: Status: Acute Plan 27 year old female with tuberous sclerosis, seizure desorder admitted to Psych for increased paranoia, agitation and symptoms of angel and had a seizure this moring, labs show, gap acidosis of unclear etiology Anion gap metaboli acidosis-likely related to seizure, repeat normal seizure, typical of underlying desorder with tuberous sclerosis, continue lamictal and if repeat seizure, wouldl get neuro consult will follow Time Spent With Patient Time: Total time managing care of this patient today ____ minutes.
--- NOTE | 2023-05-12 11:00 | PC.NURSE ---
Cindy Verduzco states she has smoked one cigarette in her life.
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
[2023-05-12 14:04] LABS: Anion Gap 11 (12-20); Beta-Hydroxybutyrate 0.18 mmol/L (0.02-0.27); Carbon Dioxide 24 mmol/L (22-29); Chloride 110 mmol/L (96-108); Potassium 4.5 mmol/L (3.3-5.1); Sodium 140 mmol/L (135-145)
--- NOTE | 2023-05-12 14:11 | HE.PHANOTE ---
Re: patient own meds Rec'd sirolimus 2 mg and epidiolex 100 mg/ml solution from nurse 05/12/23 @1400
[2023-05-12] MEDS: Methylphenidate HCl 10 MG TABLET PO (14:19)
[2023-05-12] MEDS: ARIPiprazole 2 MG TABLET PO (14:19)
[2023-05-12] MEDS: FLUoxetine HCl 10 MG CAPSULE PO (14:19)
--- NOTE | 2023-05-12 16:11 | P.CNNE_ITS ---
History of Present Illness Data of Consult Service Date: 05/12/23 Primary Care Provider: None Physician HPI Reason for consult: Seizure 27 years old woman I was asked to see after she had a seizure. She has been ad mitted on psychiatric floor. She is originally from [facility] and her previous records and workup is not available. She stated that she suffered from tuberous sclerosis and epilepsy is side from psychiatric illness. She was admitted in hospital due to worsening psychotic symptoms and agitation. Today she was walking in the hallway when at 1 point she stated that she was going to have a seizure and then apparently she fell down and had a convulsion. She said that usually she would have a brief or a or maybe not. Or of was described as a feeling of doom and then she would pass out. She has been taking lamotrigine and I had noticed that she is also on Epidiolex, which might have been given to her for seizure control. Review of Systems Review of Systems: Worsening psychotic symptoms as reported before [facility] Social History Social History Household Members: Other Housing: Other Housing Other:: [facility], [place], [place] Do you presently have visiting nurse or other home services: No Unable to assess alcohol history related to: Unknown Patient Tobacco Use Status: Tobacco use Unknown Use of substances other than those prescribed or required for medical reasons: Yes Substance Use Type: Marijuana and Other Substance Use Type Other:: PCP Last Used Substance: Unknown Currently Displaying Signs/Symptoms of Drug Intoxication Withdrawal: No Any prior treatment program specific to substance use: No Spiritual Healthcare Practices: none identified Catholic Healthcare Practices: none identified Cultural Healthcare Practices: none identified Advance Directives: No Advance Directives Information Provided: No Do you have thoughts of harming others: None Do you have a plan to hurt others: No Plan Recently lost weight without trying: No Nutrition Risks: No Nutritional Risk Patient : No : No Poor oral hygiene: No service: No Sexual orientation: Straight/Heterosexual Meds Allergies Allergy/AdvReac Type Severity Reaction Status Date / Time azithromycin Allergy Rash Verified 05/11/23 19:14 ibuprofen Allergy Rash Verified 05/11/23 19:14 Iodinated Contrast Media Allergy Rash Verified 05/11/23 19:14 NSAIDS (Non-Steroidal Allergy Rash Verified 05/11/23 19:14 Anti-Inflamma Sulfa (Sulfonamide Allergy Rash Verified 05/11/23 19:14 Antibiotics) Active Medications: Current Medications Acetaminophen (Acetaminophen 325 Mg Tablet) 650 mg PO Q6H PRN PRN Reason: Headache/Pain Mild Scale (1-3) Al Hydroxide/Mg Hydroxide (Magnesium Hydrox/Alum Hydrox 30 Ml Oral.Susp) 30 ml PO Q6H PRN PRN Reason: Heartburn/Nausea Aripiprazole (Aripiprazole 2 Mg Tablet) 2 mg PO DAILY [facility] Last Admin: 05/12/23 14:19 Dose: 2 mg Aripiprazole (Aripiprazole 5 Mg Tablet) 5 mg PO BEDTIME [facility] Fluoxetine HCl (Fluoxetine Hcl 10 Mg Capsule) 10 mg PO DAILY [facility] Last Admin: 05/12/23 14:19 Dose: 10 mg Hydroxyzine HCl (Hydroxyzine Hcl 25 Mg Tablet) 25 mg PO Q6H PRN PRN Reason: Anxiety Lamotrigine (Lamotrigine 100 Mg Tablet) 300 mg PO BEDTIME [facility] Lamotrigine (Lamotrigine 100 Mg Tablet) 200 mg PO DAILY [facility] Lamotrigine (Lamotrigine 25 Mg Tablet) 50 mg PO DAILY [facility] Magnesium Hydroxide (Milk Of Magnesia 30 Ml Oral.Susp) 30 ml PO DAILY PRN PRN Reason: Constipation Melatonin (Melatonin 3 Mg Tablet) 3 mg PO BEDTIME [facility] Methylphenidate HCl (Methylphenidate Hcl 10 Mg Tablet) 10 mg PO BID@0800,1300 [facility] Last Admin: 05/12/23 14:19 Dose: 10 mg Sirolimus 2 Mg (Tablet) 2 mg PO DAILY [facility] Cannabidiol [ (Epidiolex] 470 Mg) 470 mg PO BID [facility] Trazodone HCl (Trazodone Hcl 50 Mg Tablet) 50 mg PO BEDTIME MRX1 PRN PRN Reason: Insomnia Home Medications Medication Instructions Recorded Confirmed Last Taken Type acetaminophen 325 mg tablet 650 mg PO Q4H PRN Pain, Moderate 05/11/23 05/11/23 05/11/23 11:02 History cannabidiol 100 mg/mL oral 4.7 mg PO BID 05/11/23 05/11/23 Unknown History solution (Epidiolex) lamotrigine 200 mg tablet 200 mg PO DAILY 05/11/23 05/11/23 05/11/23 09:22 History melatonin 3 mg tablet 3 mg PO BEDTIME 05/11/23 05/11/23 Unknown History methylphenidate HCl 36 mg 36 mg PO DAILY 05/11/23 05/11/23 Unknown History tablet,extended release 24 hr (Concerta) midazolam 5 mg/spray (0.1 mL) 5 mg intranasal DIRECTED PRN 05/11/23 05/11/23 Unknown History nasal spray (Nayzilam) seizure activity sirolimus 2 mg tablet 2 mg PO DAILY 05/11/23 05/11/23 Unknown History Physical Exam Vital Signs: Vital Signs: Last Vital Signs Temp 98.4 F 05/12/23 10:00 Pulse 88 05/12/23 10:00 Resp 16 05/12/23 10:00 BP 114/72 05/12/23 10:00 Pulse Ox 96 05/12/23 10:00 O2 Del Method Room Air 05/12/23 10:00 Neuro: Other: She is alert and awake with normal spontaneity of speech fluency comprehension and vague affect. There is no obvious tubers on her face or nose. Her finger examination did not reveal any obvious fibroma. He said or denied any significant skin lesions. Face was symmetrical. Visual whitesied are full. Deep tendon reflexes are 2+ with flexor plantars. Balance gait and coordination normal. The there was no significant tremor per Results Labs 05/12/23 12:27 Labs: BMP 05/12/23 05/12/23 09:10 12:27 Sodium 142 140 Potassium 4.2 4.5 Chloride 110 H 110 H Carbon Dioxide 12 L 24 BUN 12 Creatinine 0.87 Calcium 9.6 Liver Function 05/12/23 Range/Units 09:10 Total Bilirubin 0.2 (0.0-1.0) mg/dL AST 14 (5-31) U/L ALT 14 (0-31) U/L Alkaline Phosphatase 82 (39-117) U/L Albumin 4.1 (3.5-5.0) g/dL Assessment and Plan (1) Generalized seizure disorder: Status: Acute 27 years old woman with self-reported history of diagnosis of tuberous sclerosis and probably secondarily generalized seizure disorder. He has been taking lamotrigine and is also taking Epidiolex. It might be useful to obtain her previous records if she was going to stay here for a while. Otherwise I recommend an electroencephalogram to rule out any inter a ictal epileptic discharges, which sometime could also explain behavioral disorder, and increasing dose of lamotrigine to total of 300 mg a day. Time Spent With Patient Time: Total time managing care of this patient today ____ minutes. Procedures Date of Service Date of Service: 05/12/23
--- NOTE | 2023-05-12 19:17 | PC.NURSE ---
Just before 9am pt was ambulating in walls next to this RN, stopped and stated, I'm going to have a seizure. Patient was lowered to the floor by this nurse, rapid response was called. Grand mal seizure of approximately 90 seconds occurred. Patient was assessed by Dr Grande. FBS 76, Dr Chen ordered glucogel. Ativan 1mg IM was administered per MD order. Pt was restarted on Lamictal. Pt was seen by Dr Mckee, neuro, as well. [facility]'s detention director Lul visited. She informed this nurse that at baseline pt ingests her own body fluids. The issue that is concerning to detention staff was pt's recent paranoia and delusions about staff shrinking and living inside her head. Fanta's left hand was reddened, peeling. THe area that she identifies as a former iv site is itchy, inflamed and painful per pt. Britton PAK assessed pt with no further orders given. Pt is instructed to refrain from scratching or picking at that area.
--- NOTE | 2023-05-12 19:22 | P.EN_ITS ---
Event Note Date of Service: 05/13/23 Event Note: Patient seen for evaluation of redness and swelling on dorsal aspect left hand at site of IV infiltration at [facility]. Area has been pruritic and pt has been apparently scratching at the area since arriving on the unit. She denies fever or chills. Upon physical examination there is a small area of erythema, swelling, and warmth on the proximal lateral dorsal aspect of left hand surrounding a central scab. No fluctuance or induration noted. No discharge. Areas of peeling skin and superficial abrasions noted. Given clinical presentation and pt's likely continued excoriation of the area, will treat with doxycycline 100mg bid x5 days. Time Spent With Patient Time: Total time managing care of this patient today ____ minutes.
[2023-05-12 20:45] VITALS: BP 103/51; PULSE 80; RESP 18; TEMP 36.7; O2SAT 97
[2023-05-12] MEDS: hydrOXYzine HCL 25 MG TABLET PO (20:58)
[2023-05-12] MEDS: ARIPiprazole 5 MG TABLET PO (20:58)
[2023-05-12] MEDS: Melatonin 3 MG TABLET PO (20:58)
[2023-05-12] MEDS: traZODone HCL 50 MG TABLET PO (20:58)
[2023-05-12] MEDS: lamoTRIgine 100 MG TABLET 300 MG PO (20:59)
[2023-05-12] MEDS: Acetaminophen 325 MG TABLET 650 MG PO (20:59)
[2023-05-12] MEDS: Doxycycline Monohydrate 100 MG CAPSULE PO (20:59)
--- NOTE | 2023-05-13 | EEG_ITS ---
INTERPRETATION: This is a 16-channel EEG with an EKG lead. The patient is reported awake during the tracing. Background EEG rhythm is somewhat asymmetric with theta range slowing noted in the right frontal central region. No definite sharp waves or spikes were noted. Cardiac lead does not reveal any significant abnormality. Photic stimulation was unremarkable. Hyperventilation was not performed. IMPRESSION: Mildly abnormal EEG suggestive of right frontal central probably structural dysfunction, but no evidence of seizure disorder. MD TERRELL Segura/CUATE / [id number]
[2023-05-13 08:20] VITALS: BP 112/66; PULSE 88; O2SAT 98
[2023-05-13] MEDS: FLUoxetine HCl 10 MG CAPSULE PO (08:28)
[2023-05-13] MEDS: lamoTRIgine 25 MG TABLET 50 MG PO (08:28)
[2023-05-13] MEDS: lamoTRIgine 100 MG TABLET 200 MG PO (08:28)
[2023-05-13] MEDS: ARIPiprazole 2 MG TABLET PO (08:28)
[2023-05-13] MEDS: Methylphenidate HCl 10 MG TABLET PO ×2 (08:28→13:05)
[2023-05-13] MEDS: Doxycycline Monohydrate 100 MG CAPSULE PO ×2 (08:28→20:25)
--- NOTE | 2023-05-13 14:16 | P.PNPSI_ITS ---
Subjective Subjective Date of Service: 05/13/23 Reason For Visit: Unspecified Anxiety Disorder F41.9 Interim History: feeling well, mood good, denies SI/SIBI/HI/AVH, paranoia, safety concerns. [facility] about returning to her [facility] per staff, remains on 1:1, taking meds, no issues in past 24H. Mental Status Exam Mental Status Exam Narrative: adequately dressed and groomed. no PMA/PMR. cooperative. speech nml rate, amount, loudness, tone, latency. thoughts linear and logical, no evidence of paranoia or delusions. affect flexible, normo-intense, non-labile. mood good. denies SI/SIBI/HI/AVH. Diagnostics Vital Signs (24Hr): Vital Signs - 24 hr 05/12/23 20:45 05/13/23 08:20 Temperature 98.1 F Pulse Rate 80 88 Respiratory Rate 18 Blood Pressure 103/51 L 112/66 Pulse Oximetry 97 98 Oxygen Delivery Method Room Air Room Air Labs 05/12/23 12:27 Labs: Laboratory Results - last 48 hr 05/12/23 05/12/23 05/12/23 09:02 09:10 12:27 Sodium 142 140 Potassium 4.2 4.5 Chloride 110 H 110 H Carbon Dioxide 12 L 24 Anion Gap 24 H 11 L BUN 12 Creatinine 0.87 Estim Creat Clear Calc TNP Estimated GFR > 60 POC Glucose 76 Fasting Glucose 80 Calcium 9.6 Total Bilirubin 0.2 AST 14 ALT 14 Alkaline Phosphatase 82 Total Protein 7.7 Albumin 4.1 Triglycerides 182 Cholesterol 253 LDL Cholesterol, Calc 174 HDL Cholesterol 43 Beta-Hydroxybutyrate 0.18 Medications Medications Current Medications Acetaminophen (Acetaminophen 325 Mg Tablet) 650 mg PO Q6H PRN PRN Reason: Headache/Pain Mild Scale (1-3) Last Admin: 05/12/23 20:59 Dose: 650 mg Al Hydroxide/Mg Hydroxide (Magnesium Hydrox/Alum Hydrox 30 Ml Oral.Susp) 30 ml PO Q6H PRN PRN Reason: Heartburn/Nausea Aripiprazole (Aripiprazole 2 Mg Tablet) 2 mg PO DAILY [facility] Last Admin: 05/13/23 08:28 Dose: 2 mg Aripiprazole (Aripiprazole 5 Mg Tablet) 5 mg PO BEDTIME [facility] Last Admin: 05/12/23 20:58 Dose: 5 mg Doxycycline Monohydrate (Doxycycline Monohydrate 100 Mg Capsule) 100 mg PO BID [facility] Stop: 05/17/23 20:59 Last Admin: 05/13/23 08:28 Dose: 100 mg Fluoxetine HCl (Fluoxetine Hcl 10 Mg Capsule) 10 mg PO DAILY [facility] Last Admin: 05/13/23 08:28 Dose: 10 mg Hydroxyzine HCl (Hydroxyzine Hcl 25 Mg Tablet) 25 mg PO Q6H PRN PRN Reason: Anxiety Last Admin: 05/12/23 20:58 Dose: 25 mg Lamotrigine (Lamotrigine 100 Mg Tablet) 300 mg PO BEDTIME [facility] Last Admin: 05/12/23 20:59 Dose: 300 mg Lamotrigine (Lamotrigine 100 Mg Tablet) 200 mg PO DAILY [facility] Last Admin: 05/13/23 08:28 Dose: 200 mg Lamotrigine (Lamotrigine 25 Mg Tablet) 50 mg PO DAILY [facility] Last Admin: 05/13/23 08:28 Dose: 50 mg Magnesium Hydroxide (Milk Of Magnesia 30 Ml Oral.Susp) 30 ml PO DAILY PRN PRN Reason: Constipation Melatonin (Melatonin 3 Mg Tablet) 3 mg PO BEDTIME [facility] Last Admin: 05/12/23 20:58 Dose: 3 mg Methylphenidate HCl (Methylphenidate Hcl 10 Mg Tablet) 10 mg PO BID@0800,1300 [facility] Last Admin: 05/13/23 13:05 Dose: 10 mg Sirolimus 2 Mg (Tablet) 2 mg PO DAILY [facility] Last Admin: 05/13/23 08:27 Dose: 2 mg Cannabidiol [ (Epidiolex] 470 Mg) 470 mg PO BID [facility] Last Admin: 05/13/23 08:27 Dose: 470 mg Trazodone HCl (Trazodone Hcl 50 Mg Tablet) 50 mg PO BEDTIME MRX1 PRN PRN Reason: Insomnia Last Admin: 05/12/23 20:58 Dose: 50 mg Allergies Allergies Allergy/AdvReac Type Severity Reaction Status Date / Time azithromycin Allergy Rash Verified 05/11/23 19:14 ibuprofen Allergy Rash Verified 05/11/23 19:14 Iodinated Contrast Media Allergy Rash Verified 05/11/23 19:14 NSAIDS (Non-Steroidal Allergy Rash Verified 05/11/23 19:14 Anti-Inflamma Sulfa (Sulfonamide Allergy Rash Verified 05/11/23 19:14 Antibiotics) Assessment & Plan Assessment & Plan (1) Generalized seizure disorder: Status: Acute Code(s): G40.309 - Generalized idiopathic epilepsy and epileptic syndromes, not intractable, without status epilepticus Assessment and Plan: 27 years old woman with self-reported history of diagnosis of tuberous sclerosis and probably secondarily generalized seizure disorder. He has been taking [place] otrigine and is also taking Epidiolex. It might be useful to obtain her previous records if she was going to stay here for a while. Otherwise I recommend an electroencephalogram to rule out any inter a ictal epileptic discharges, which sometime could also explain behavioral disorder, and increasin g dose of lamotrigine to total of 300 mg a day. (2) ADHD: Status: Acute Code(s): F90.9 - Attention-deficit hyperactivity disorder, unspecified type (3) Tuberous sclerosis: Status: Acute Code(s): Q85.1 - Tuberous sclerosis (4) OCD (obsessive compulsive disorder): Status: Acute Code(s): F42.9 - Obsessive-compulsive disorder, unspecified (5) Major depressive disorder: Status: Acute Code(s): F32.9 - Major depressive disorder, single episode, unspecified Plan 05/12: restart prozac 10 and abilify 2/5.? otherwise continue outpt medications.? had a Sz this morning, consult neuro for input on mgmt.? pt currently on cannabinoids, lamictal 250/300, concerta 36, and sirolimus 2 daily.? stabilize and return home. 05/13: neuro consult appreciated, will order EEG. pt stable, euthymic, denies psychotic Sx, asking about D/C to [facility]. planning for discharge mon or . tolerating current regimen well. Reason for continued inpatient stay Substantial Risk for: harm to self, inability to function and rapid decompensation Time Spent With Patient Time: Total time managing care of this patient today __35__ minutes.
[2023-05-13] MEDS: Acetaminophen 325 MG TABLET 650 MG PO (14:47)
[2023-05-13] MEDS: Magnesium Hydrox/Alum Hydrox 30 ML ORAL.SUSP PO (18:46)
[2023-05-13 20:15] VITALS: BP 121/71; PULSE 92; RESP 18; TEMP 36.6; O2SAT 100
[2023-05-13] MEDS: ARIPiprazole 5 MG TABLET PO (20:25)
[2023-05-13] MEDS: lamoTRIgine 100 MG TABLET 300 MG PO (20:26)
[2023-05-13] MEDS: Melatonin 3 MG TABLET PO (20:26)
[2023-05-13] MEDS: traZODone HCL 50 MG TABLET PO (20:37)
[2023-05-14 06:00] VITALS: BP 115/66; PULSE 103; RESP 16; TEMP 36.7; O2SAT 98
[2023-05-14] MEDS: lamoTRIgine 100 MG TABLET 200 MG PO (08:10)
[2023-05-14] MEDS: Doxycycline Monohydrate 100 MG CAPSULE PO ×2 (08:10→20:19)
[2023-05-14] MEDS: FLUoxetine HCl 10 MG CAPSULE PO (08:10)
[2023-05-14] MEDS: Methylphenidate HCl 10 MG TABLET PO ×2 (08:10→13:24)
[2023-05-14] MEDS: lamoTRIgine 25 MG TABLET 50 MG PO (08:10)
[2023-05-14] MEDS: ARIPiprazole 2 MG TABLET PO (08:10)
[2023-05-14] MEDS: Acetaminophen 325 MG TABLET 650 MG PO (12:46)
--- NOTE | 2023-05-14 16:34 | HO.PSYCHPN ---
Subjective Subjective Date of Service: 05/14/23 Reason For Visit: Unspecified Anxiety Disorder F41.9 Interim History: pt somewhat pressured expansive asking about gabapentin for hx sz anxiety and help with her alcohol cravings Review of Systems hx sz Mental Status Exam Mental Status Exam Narrative: pt intrusive loud labile expansive logical pressured no pi noted denies si urges for drinking Diagnostics Vital Signs (24Hr): Vital Signs - 24 hr 05/13/23 20:15 05/14/23 06:00 Temperature 97.8 F 98.1 F Pulse Rate 92 103 H Respiratory Rate 18 16 Blood Pressure 121/71 115/66 Pulse Oximetry 100 98 Oxygen Delivery Method Room Air Room Air Labs 05/12/23 12:27 Medications Medications Current Medications Acetaminophen (Acetaminophen 325 Mg Tablet) 650 mg PO Q6H PRN PRN Reason: Headache/Pain Mild Scale (1-3) Last Admin: 05/14/23 12:46 Dose: 650 mg Al Hydroxide/Mg Hydroxide (Magnesium Hydrox/Alum Hydrox 30 Ml Oral.Susp) 30 ml PO Q6H PRN PRN Reason: Heartburn/Nausea Last Admin: 05/13/23 18:46 Dose: 30 ml Aripiprazole (Aripiprazole 2 Mg Tablet) 2 mg PO DAILY [facility] Last Admin: 05/14/23 08:10 Dose: 2 mg Aripiprazole (Aripiprazole 5 Mg Tablet) 5 mg PO BEDTIME [facility] Last Admin: 05/13/23 20:25 Dose: 5 mg Doxycycline Monohydrate (Doxycycline Monohydrate 100 Mg Capsule) 100 mg PO BID [facility] Stop: 05/17/23 20:59 Last Admin: 05/14/23 08:10 Dose: 100 mg Fluoxetine HCl (Fluoxetine Hcl 10 Mg Capsule) 10 mg PO DAILY [facility] Last Admin: 05/14/23 08:10 Dose: 10 mg Hydroxyzine HCl (Hydroxyzine Hcl 25 Mg Tablet) 25 mg PO Q6H PRN PRN Reason: Anxiety Last Admin: 05/12/23 20:58 Dose: 25 mg Lamotrigine (Lamotrigine 100 Mg Tablet) 300 mg PO BEDTIME [facility] Last Admin: 05/13/23 20:26 Dose: 300 mg Lamotrigine (Lamotrigine 100 Mg Tablet) 200 mg PO DAILY [facility] Last Admin: 05/14/23 08:10 Dose: 200 mg Lamotrigine (Lamotrigine 25 Mg Tablet) 50 mg PO DAILY [facility] Last Admin: 05/14/23 08:10 Dose: 50 mg Magnesium Hydroxide (Milk Of Magnesia 30 Ml Oral.Susp) 30 ml PO DAILY PRN PRN Reason: Constipation Melatonin (Melatonin 3 Mg Tablet) 3 mg PO BEDTIME [facility] Last Admin: 05/13/23 20:26 Dose: 3 mg Methylphenidate HCl (Methylphenidate Hcl 10 Mg Tablet) 10 mg PO BID@0800,1300 [facility] Last Admin: 05/14/23 13:24 Dose: 10 mg Sirolimus 2 Mg (Tablet) 2 mg PO DAILY [facility] Last Admin: 05/14/23 08:12 Dose: 2 mg Cannabidiol [ (Epidiolex] 470 Mg) 470 mg PO BID [facility] Last Admin: 05/14/23 08:12 Dose: 470 mg Trazodone HCl (Trazodone Hcl 50 Mg Tablet) 50 mg PO BEDTIME MRX1 PRN PRN Reason: Insomnia Last Admin: 05/13/23 20:37 Dose: 50 mg Allergies Allergies Allergy/AdvReac Type Severity Reaction Status Date / Time azithromycin Allergy Rash Verified 05/11/23 19:14 ibuprofen Allergy Rash Verified 05/11/23 19:14 Iodinated Contrast Media Allergy Rash Verified 05/11/23 19:14 NSAIDS (Non-Steroidal Allergy Rash Verified 05/11/23 19:14 Anti-Inflamma Sulfa (Sulfonamide Allergy Rash Verified 05/11/23 19:14 Antibiotics) Assessment & Plan Assessment & Plan (1) Generalized seizure disorder: Status: Acute Code(s): G40.309 - Generalized idiopathic epilepsy and epileptic syndromes, not intractable, without status epilepticus Assessment and Plan: 27 years old woman with self-reported history of diagnosis of tuberous sclerosis and probably secondarily generalized seizure disorder. He has been taking lamotrigine and is also taking Epidiolex. It might be useful to obtain her previous records if she was going to stay here for a while. Otherwise I recommend an electroencephalogram to rule out any inter a ictal epileptic discharges, which sometime could also explain behavioral disorder, and increasing dose of lamotrigine to total of 300 mg a day. (2) ADHD: Status: Acute Code(s): F90.9 - Attention-deficit hyperactivity disorder, unspecified type (3) Tuberous sclerosis: Status: Acute Code(s): Q85.1 - Tuberous sclerosis (4) OCD (obsessive compulsive disorder): Status: Acute Code(s): F42.9 - Obsessive-compulsive disorder, unspecified (5) Major depressive disorder: Status: Acute Code(s): F32.9 - Major depressive disorder, single episode, unspecified Plan 05/12: restart prozac 10 and abilify 2/5.? otherwise continue outpt medications.? had a Sz this morning, consult neuro for input on mgmt.? pt currently on cannabinoids, lamictal 250/300, concerta 36, and sirolimus 2 daily.? stabilize and return home. 05/13: neuro consult appreciated, will order EEG. pt stable, euthymic, denies psychotic Sx, asking about D/C to custodial. planning for discharge mon or tu. tolerating current regimen well. 05/14/23 pt started on gabapentin ck lamictal level pt gives hx alcohol binging Reason for continued inpatient stay Substantial Risk for: inability to function and rapid decompensation Time Spent With Patient Time: Total time managing care of this patient today ____ minutes.
[2023-05-14] MEDS: Gabapentin 100 MG CAPSULE 200 MG PO ×2 (17:08→20:19)
[2023-05-14 20:00] VITALS: BP 119/69; PULSE 94; RESP 18; TEMP 36.5; O2SAT 99
[2023-05-14] MEDS: Melatonin 3 MG TABLET PO (20:20)
[2023-05-14] MEDS: ARIPiprazole 5 MG TABLET PO (20:20)
[2023-05-14] MEDS: traZODone HCL 50 MG TABLET PO (20:20)
[2023-05-14] MEDS: lamoTRIgine 100 MG TABLET 300 MG PO (20:21)
[2023-05-15 06:00] VITALS: BP 120/66; PULSE 107; RESP 16; TEMP 36.6; O2SAT 100
[2023-05-15] MEDS: ARIPiprazole 2 MG TABLET PO (07:56)
[2023-05-15] MEDS: Doxycycline Monohydrate 100 MG CAPSULE PO ×2 (07:56→20:09)
[2023-05-15] MEDS: Methylphenidate HCl 10 MG TABLET PO ×2 (07:57→13:51)
[2023-05-15] MEDS: lamoTRIgine 100 MG TABLET 200 MG PO (07:57)
[2023-05-15] MEDS: FLUoxetine HCl 10 MG CAPSULE PO (07:57)
[2023-05-15] MEDS: Gabapentin 100 MG CAPSULE 200 MG PO ×3 (07:57→20:10)
[2023-05-15] MEDS: lamoTRIgine 25 MG TABLET 50 MG PO (07:58)
--- NOTE | 2023-05-15 10:09 | P.PNPSI_ITS ---
Subjective Subjective Date of Service: 05/15/23 Reason For Visit: Unspecified Anxiety Disorder F41.9 Interim History: Patient continues on one-to-one secondary to an intrusive behavior help with other problematic behavior in self-care seems less labile with gabapentin future oriented not psychotic Side effects from medications: Yes Mental Status Exam Mental Status Exam Narrative: Patient somewhat less intrusive remains on one-to-one full affect somewhat euphoric at times. Future oriented thoughts somewhat circumstantial speech mildly pressured alert oriented ?no paranoia and no thoughts of harm to herself or others. Reports urges for drinking Diagnostics Vital Signs (24Hr): Vital Signs - 24 hr 05/14/23 20:00 05/15/23 06:00 Temperature 97.7 F 97.9 F Pulse Rate 94 107 H Respiratory Rate 18 16 Blood Pressure 119/69 120/66 Pulse Oximetry 99 100 Oxygen Delivery Method Room Air Room Air Labs 05/12/23 12:27 Medications Medications Current Medications Acetaminophen (Acetaminophen 325 Mg Tablet) 650 mg PO Q6H PRN PRN Reason: Headache/Pain Mild Scale (1-3) Last Admin: 05/14/23 12:46 Dose: 650 mg Al Hydroxide/Mg Hydroxide (Magnesium Hydrox/Alum Hydrox 30 Ml Oral.Susp) 30 ml PO Q6H PRN PRN Reason: Heartburn/Nausea Last Admin: 05/13/23 18:46 Dose: 30 ml Aripiprazole (Aripiprazole 2 Mg Tablet) 2 mg PO DAILY [facility] Last Admin: 05/15/23 07:56 Dose: 2 mg Aripiprazole (Aripiprazole 5 Mg Tablet) 5 mg PO BEDTIME [facility] Last Admin: 05/14/23 20:20 Dose: 5 mg Doxycycline Monohydrate (Doxycycline Monohydrate 100 Mg Capsule) 100 mg PO BID [facility] Stop: 05/17/23 20:59 Last Admin: 05/15/23 07:56 Dose: 100 mg Fluoxetine HCl (Fluoxetine Hcl 10 Mg Capsule) 10 mg PO DAILY [facility] Last Admin: 05/15/23 07:57 Dose: 10 mg Gabapentin (Gabapentin 100 Mg Capsule) 200 mg PO TID [facility] Last Admin: 05/15/23 07:57 Dose: 200 mg Hydroxyzine HCl (Hydroxyzine Hcl 25 Mg Tablet) 25 mg PO Q6H PRN PRN Reason: Anxiety Last Admin: 05/12/23 20:58 Dose: 25 mg Lamotrigine (Lamotrigine 100 Mg Tablet) 300 mg PO BEDTIME [facility] Last Admin: 05/14/23 20:21 Dose: 300 mg Lamotrigine (Lamotrigine 100 Mg Tablet) 200 mg PO DAILY [facility] Last Admin: 05/15/23 07:57 Dose: 200 mg Lamotrigine (Lamotrigine 25 Mg Tablet) 50 mg PO DAILY [facility] Last Admin: 05/15/23 07:58 Dose: 50 mg Magnesium Hydroxide (Milk Of Magnesia 30 Ml Oral.Susp) 30 ml PO DAILY PRN PRN Reason: Constipation Melatonin (Melatonin 3 Mg Tablet) 3 mg PO BEDTIME [facility] Last Admin: 05/14/23 20:20 Dose: 3 mg Methylphenidate HCl (Methylphenidate Hcl 10 Mg Tablet) 10 mg PO BID@0800,1300 [facility] Last Admin: 05/15/23 07:57 Dose: 10 mg Sirolimus 2 Mg (Tablet) 2 mg PO DAILY [facility] Last Admin: 05/15/23 07:58 Dose: 2 mg Cannabidiol [ (Epidiolex] 470 Mg) 470 mg PO BID [facility] Last Admin: 05/15/23 07:58 Dose: 470 mg Trazodone HCl (Trazodone Hcl 50 Mg Tablet) 50 mg PO BEDTIME MRX1 PRN PRN Reason: Insomnia Last Admin: 05/14/23 20:20 Dose: 50 mg Allergies Allergies Allergy/AdvReac Type Severity Reaction Status Date / Time azithromycin Allergy Rash Verified 05/11/23 19:14 ibuprofen Allergy Rash Verified 05/11/23 19:14 Iodinated Contrast Media Allergy Rash Verified 05/11/23 19:14 NSAIDS (Non-Steroidal Allergy Rash Verified 05/11/23 19:14 Anti-Inflamma Sulfa (Sulfonamide Allergy Rash Verified 05/11/23 19:14 Antibiotics) Assessment & Plan Assessment & Plan (1) Generalized seizure disorder: Status: Acute Code(s): G40.309 - Generalized idiopathic epilepsy and epileptic syndromes, not intractable, without status epilepticus Assessment and Plan: 27 years old woman with self-reported history of diagnosis of tuberous sclerosis and probably secondarily generalized seizure disorder. He has been taking lamotrigine and is also taking Epidiolex. It might be useful to obtain her previous records if she was going to stay here for a while. Otherwise I recommend an electroencephalogram to rule out any inter a ictal epileptic discharges, which sometime could also explain behavioral disorder, and increasing dose of lamotrigine to total of 300 mg a day. (2) ADHD: Status: Acute Code(s): F90.9 - Attention-deficit hyperactivity disorder, unspecified type (3) Tuberous sclerosis: Status: Acute Code(s): Q85.1 - Tuberous sclerosis (4) OCD (obsessive compulsive disorder): Status: Acute Code(s): F42.9 - Obsessive-compulsive disorder, unspecified (5) Major depressive disorder: Status: Acute Code(s): F32.9 - Major depressive disorder, single episode, unspecified Plan 05/12: restart prozac 10 and abilify 2/5.? otherwise continue outpt medications.? had a Sz this morning, consult neuro for input on mgmt.? pt currently on cannabinoids, lamictal 250/300, concerta 36, and sirolimus 2 daily.? stabilize and return home. 05/13: neuro consult appreciated, will order EEG. pt stable, euthymic, denies psychotic Sx, asking about D/C to [facility]. planning for discharge mon or tu. tolerating current regimen well. 05/14/23 pt started on gabapentin ck lamictal level pt gives hx alcohol binging 05/15/2023 Patient has been without seizure activity less labile not aggressive gabapentin was added to lamotrigine Patient educated on: medication risk/benefits Reason for continued inpatient stay Substantial Risk for: rapid decompensation and med/psych decompensation Time Spent With Patient Time: Total time managing care of this patient today ____ minutes.
[2023-05-15] MEDS: Acetaminophen 325 MG TABLET 650 MG PO ×2 (11:42→20:19)
[2023-05-15] MEDS: ARIPiprazole 5 MG TABLET PO (20:09)
[2023-05-15] MEDS: traZODone HCL 50 MG TABLET PO (20:10)
[2023-05-15] MEDS: lamoTRIgine 100 MG TABLET 300 MG PO (20:10)
[2023-05-15] MEDS: Melatonin 3 MG TABLET PO (20:10)
[2023-05-15 20:25] VITALS: BP 112/81; PULSE 95; RESP 18; TEMP 36.6; O2SAT 98
[2023-05-16 08:10] VITALS: BP 120/70; PULSE 93; RESP 16; TEMP 36.3; O2SAT 100
[2023-05-16] MEDS: lamoTRIgine 100 MG TABLET 200 MG PO (08:13)
[2023-05-16] MEDS: Methylphenidate HCl 10 MG TABLET PO ×2 (08:13→12:33)
[2023-05-16] MEDS: lamoTRIgine 25 MG TABLET 50 MG PO (08:13)
[2023-05-16] MEDS: FLUoxetine HCl 10 MG CAPSULE PO (08:13)
[2023-05-16] MEDS: ARIPiprazole 2 MG TABLET PO (08:13)
[2023-05-16] MEDS: Doxycycline Monohydrate 100 MG CAPSULE PO ×2 (08:13→20:43)
[2023-05-16] MEDS: Gabapentin 100 MG CAPSULE 200 MG PO ×3 (08:14→18:24)
[2023-05-16] MEDS: Acetaminophen 325 MG TABLET 650 MG PO ×2 (12:32→18:24)
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
[2023-05-16 20:35] VITALS: BP 116/75; PULSE 91; RESP 18; TEMP 36.4; O2SAT 100
[2023-05-16] MEDS: ARIPiprazole 5 MG TABLET PO (20:43)
[2023-05-16] MEDS: Melatonin 3 MG TABLET PO (20:43)
[2023-05-16] MEDS: traZODone HCL 50 MG TABLET PO (20:43)
[2023-05-16] MEDS: lamoTRIgine 100 MG TABLET 300 MG PO (20:43)
[2023-05-17 07:55] VITALS: BP 130/74; PULSE 80; RESP 16; TEMP 36.9; O2SAT 98
[2023-05-17] MEDS: lamoTRIgine 25 MG TABLET 50 MG PO (08:12)
[2023-05-17] MEDS: lamoTRIgine 100 MG TABLET 200 MG PO (08:12)
[2023-05-17] MEDS: Methylphenidate HCl 10 MG TABLET PO ×2 (08:13→12:50)
[2023-05-17] MEDS: Doxycycline Monohydrate 100 MG CAPSULE PO (08:13)
[2023-05-17] MEDS: FLUoxetine HCl 10 MG CAPSULE PO (08:13)
[2023-05-17] MEDS: ARIPiprazole 2 MG TABLET PO (08:13)
[2023-05-17] MEDS: Gabapentin 100 MG CAPSULE 200 MG PO ×2 (08:13→14:14)
--- NOTE | 2023-05-17 10:57 | PC.NURSE ---
Patient is alert, fully oriented, pleasant and cooperative with discharge process. She will be discharging to the care of correction staff with medications and outpatient appointments handled by correction staff. Patient denies ideation plan or intent to harm self or others at present. She denies current physical complaint.
[2023-05-18 16:43] LABS: Lamotrigine Lamictal 4.1 mcg/mL (2.5-15.0)
== END 2023-05-17 14:27 | disposition home or self-care (01) | DRG 754 ==
PROVIDERS: Internal Medicine; Psychiatry & Neurology Psychiatry; Admitting Provider Psychiatry & Neurology Psychiatry; Visit Provider Psychiatry & Neurology Psychiatry
DX: F32.9 Major depressive disorder, single episode, unspecified (principal); Q85.1 Tuberous sclerosis; F41.1 Generalized anxiety disorder; G40.409 Other generalized epilepsy and epileptic syndromes, not intractable, without status epilepticus; L29.9 Pruritus, unspecified; F42.9 Obsessive-compulsive disorder, unspecified; F43.10 Post-traumatic stress disorder, unspecified; F90.9 Attention-deficit hyperactivity disorder, unspecified type; Z91.041 Radiographic dye allergy status; Z79.899 Other long term (current) drug therapy
CPT/HCPCS: 36415; 80051; 80053; 80061; 80175; 82010; 82947; 93005; 95816; J2060

== ENCOUNTER → 2023-05-11 19:06 | Outpatient (BNV) | payer OTHER, SELFPAY | PROVIDERS: Admitting Provider Psychiatry & Neurology Psychiatry; Visit Provider Internal Medicine | DX: Q85.1 Tuberous sclerosis (principal) | CPT/HCPCS: 99222; 99499 ==

== ENCOUNTER → 2023-05-11 19:06 | Outpatient (BNV) | payer OTHER, SELFPAY | PROVIDERS: Admitting Provider Psychiatry & Neurology Psychiatry; Visit Provider Psychiatry & Neurology Psychiatry | DX: F33.3 Major depressive disorder, recurrent, severe with psychotic symptoms (principal); F90.9 Attention-deficit hyperactivity disorder, unspecified type; G40.309 Generalized idiopathic epilepsy and epileptic syndromes, not intractable, without status epilepticus; Q85.1 Tuberous sclerosis; F42.9 Obsessive-compulsive disorder, unspecified | CPT/HCPCS: 90792; 99231; 99232; 99239 ==

== ENCOUNTER → 2023-05-11 19:06 | Outpatient (BNV) | payer OTHER, SELFPAY | PROVIDERS: Admitting Provider Psychiatry & Neurology Psychiatry; Visit Provider Psychiatry & Neurology Psychiatry | DX: F33.3 Major depressive disorder, recurrent, severe with psychotic symptoms (principal); G40.309 Generalized idiopathic epilepsy and epileptic syndromes, not intractable, without status epilepticus; F90.9 Attention-deficit hyperactivity disorder, unspecified type; F42.9 Obsessive-compulsive disorder, unspecified; Q85.1 Tuberous sclerosis | CPT/HCPCS: 99231; 99232 ==